=== PATIENT | male | born 1975 | race African-American/Black ===

== ENCOUNTER 2017-02-14 19:45 | Emergency (ER) | payer MEDICAID ==
[~2017-02-14] VITALS: Ht 172.7 cm; Wt 77.0 kg
[2017-02-14 19:46] VITALS: BP 110/76
== END 2017-02-14 21:03 | disposition left against medical advice (07) ==
LOC: ER 19:46
DX: Z53.21 Procedure and treatment not carried out due to patient leaving prior to being seen by health care provider (principal)